=== PATIENT | male | born 1985 | race Caucasian/White ===

== ENCOUNTER 2017-12-06 12:22 | Emergency (ER) | payer OTHER ==
[~2017-12-06] VITALS: Ht 180.3 cm; Wt 64.9 kg
[2017-12-06 12:27] VITALS: BP 169/81; PULSE 93; RESP 18; TEMP 97.1; O2SAT 100
--- NOTE | 2017-12-06 13:44 | PD ---
HPI Chief Complaint: GI Complaint Time Seen by Provider: 13:41 Travel History International Travel<30 days: No Contact w/Intl Traveler<30days: No Traveled to known affect area: No History of Present Illness HPI Patient comes in complaining of an ongoing symptom that has been going for approximately a year and a half. He has not been referred or seen a GI doctor yet. He is having the stool test for H. pylori done by his primary care up in [place]. He is here because his epigastric area pain feels much worse than usual , he is now a 7 out of 10, associated with nausea but without any vomiting or diarrhea. He is epigastric area pain is not radiating, does not appear to improve anymore when eating, but at some point during the past year or so he used to. Patient is here also wondering if he could get urea breath test to check for H. pylori, I advised the patient that as an outpatient testing. No alleviating or aggravating factors Allergy to quinolones and sulfa Past medical history significant for suspected peptic ulcers and cholecystectomy PFSH Past Medical History Gastrointestinal Disorders: Yes Ulcer: Yes (POSSIBLE) Influenza Vaccination: No Past Surgical History Cholecystectomy: Yes Social History Alcohol Use: No Tobacco Use: No Substance Use: No Allergies-Medications (Allergen,Severity, Reaction): Coded Allergies: Quinolones (Verified Allergy, Severe, Dizziness, 12/06/17) Sulfa (Sulfonamide Antibiotics) (Verified Allergy, Severe, Dizziness, ) Reported Meds & Prescriptions Reported Meds & Active Scripts Active Carafate (Sucralfate) 1 Gram Tab 1 Gm PO TID On empty stomach Reglan (Metoclopramide HCl) 10 Mg Tab 10 Mg PO QID 5 Days Review of Systems Except as stated in HPI: all other systems reviewed are Neg Data Data Last Documented VS Vital Signs Date Time Temp Pulse Resp B/P (MAP) Pulse Ox O2 Delivery O2 Flow Rate FiO2 12/06/17 15:48 72 16 114/86 (95) 100 Room Air 12/06/17 12:27 97.1 Orders Orders Complete Blood Count With Diff (12/06/17 13:58) Comprehensive Metabolic Panel (12/06/17 13:58) Lipase (12/06/17 13:58) Abdomen, Flat & Upright (12/06/17 ) Iv Access Insert/Monitor (12/06/17 13:58) Al-Mag Hy-Si 40-40-4 Mg/Ml Liq (Mag-Al P (12/06/17 14:00) Lidocaine 2% Viscous (Xylocaine 2% Visco (12/06/17 14:00) Sucralfate Liq (Carafate Liq) (12/06/17 14:00) Ed Discharge Order (12/06/17 16:39) Labs Laboratory Tests Test 12/06/17 14:05 White Blood Count 9.8 TH/MM3 Red Blood Count 5.41 MIL/MM3 Hemoglobin 17.2 GM/DL Hematocrit 49.8 % Mean Corpuscular Volume 92.1 FL Mean Corpuscular Hemoglobin 31.8 PG Mean Corpuscular Hemoglobin Concent 34.5 % Red Cell Distribution Width 11.7 % Platelet Count 234 TH/MM3 Mean Platelet Volume 9.0 FL Neutrophils (%) (Auto) 73.4 % Lymphocytes (%) (Auto) 14.4 % Monocytes (%) (Auto) 7.7 % Eosinophils (%) (Auto) 3.5 % Basophils (%) (Auto) 1.0 % Neutrophils # (Auto) 7.2 TH/MM3 Lymphocytes # (Auto) 1.4 TH/MM3 Monocytes # (Auto) 0.8 TH/MM3 Eosinophils # (Auto) 0.3 TH/MM3 Basophils # (Auto) 0.1 TH/MM3 CBC Comment DIFF FINAL Differential Comment Blood Urea Nitrogen 21 MG/DL Creatinine 1.20 MG/DL Random Glucose 86 MG/DL Total Protein 8.2 GM/DL Albumin 4.5 GM/DL Calcium Level 8.9 MG/DL Alkaline Phosphatase 70 U/L Aspartate Amino Transf (AST/SGOT) 21 U/L Alanine Aminotransferase (ALT/SGPT) 29 U/L Total Bilirubin 2.2 MG/DL Sodium Level 138 MEQ/L Potassium Level 4.0 MEQ/L Chloride Level 106 MEQ/L Carbon Dioxide Level 23.3 MEQ/L Anion Gap 9 MEQ/L Estimat Glomerular Filtration Rate 69 ML/MIN Lipase 171 U/L [facility] Medical Decision Making Medical Screen Exam Complete: Yes Emergency Medical Condition: Yes Medical Record Reviewed: Yes Differential Diagnosis Perforated ulcer versus small bowel obstruction versus ileus versus pancreatitis versus hepatitis versus electrolyte abnormalities versus dehydration Narrative Course CBC showed no leukocytosis, some hemoconcentration with a hemoglobin of 17, normal platelet count, and no left shift Elect lites are all within normal limits, normal kidney liver and pancreatic functions. The patient's abdominal x-rays show a suspected early ileus is noted without any free air This was discussed with patient, who requested a trial of outpatient therapy. Declined admission for observation at this present time Diagnosis Primary Impression: Ileus Patient Instructions: Full Liquid Diet (DC), General Instructions, Ileus (ED) Scripts Sucralfate (Carafate) 1 Gram Tab 1 GM PO TID for Ulcer Prevention, #90 TAB 0 Refills On empty stomach Prov: Augustine Pizarro MD 12/06/17 Metoclopramide (Reglan) 10 Mg Tab 10 MG PO QID for 5 Days, #30 TAB 0 Refills Prov: Augustine Pizarro MD 12/06/17 Disposition: 01 DISCHARGE HOME Condition: Stable Augustine Pizarro MD Dec 06, 2017 13:44
[2017-12-06] MEDS: SUCRALFATE 1 GM/10 ML CUP PO ONE ×2 (14:00→16:24)
[2017-12-06] MEDS: ALUMINUM/MAGNESIUM/SIMETH 30 ML CUP PO ONE ×2 (14:00→16:24)
[2017-12-06] MEDS: LIDOCAINE VISCOUS 2% SOLN 15 ML UDC PO ONE ×2 (14:00→16:23)
[2017-12-06 14:21] LABS: AUTOMATED NEUTROPHIL # 7.2 TH/MM3 (1.8-7.7); BASOPHIL # 0.1 TH/MM3 (0-0.2); EOSINOPHIL # 0.3 TH/MM3 (0-0.4); EOSINOPHIL % 3.5 % (0.0-4.0); HEMATOCRIT 49.8 % (39.0-51.0); HEMOGLOBIN 17.2 GM/DL (13.0-17.0); LYMPH % 14.4 % (9.0-44.0); LYMPHOCYTE # 1.4 TH/MM3 (1.0-4.8); MEAN CELL VOLUME 92.1 FL (80.0-100.0); MEAN CORPUSCULAR HEMOGLOBIN 31.8 PG (27.0-34.0); MEAN CORPUSCULAR HGB CONC 34.5 % (32.0-36.0); MONO % 7.7 % (0.0-8.0); MONOCYTE # 0.8 TH/MM3 (0-0.9); NEUT % 73.4 % (16.0-70.0); PLATELET COUNT 234 TH/MM3 (150-450); RED BLOOD COUNT 5.41 MIL/MM3 (4.50-5.90); RED CELL DISTRIBUTION WIDTH 11.7 % (11.6-17.2); WHITE BLOOD COUNT 9.8 TH/MM3 (4.0-11.0)
[2017-12-06 14:31] LABS: CHLORIDE 106 MEQ/L (98-107); SODIUM (NA) 138 MEQ/L (136-145)
[2017-12-06 14:34] LABS: CALCIUM 8.9 MG/DL (8.5-10.1)
[2017-12-06 14:35] LABS: ALBUMIN 4.5 GM/DL (3.4-5.0); BICARBONATE 23.3 MEQ/L (21.0-32.0); BLOOD UREA NITROGEN 21 MG/DL (7-18); GLUCOSE,RANDOM 86 MG/DL (74-106)
[2017-12-06 14:37] LABS: ALT (GPT) 29 U/L (12-78); AST (GOT) 21 U/L (15-37)
[2017-12-06 14:38] LABS: GLOMERULAR FILTRATION RATE 69 ML/MIN (>89)
[2017-12-06 14:39] LABS: TOTAL BILIRUBIN ADULT 2.2 MG/DL (0.2-1.0); TOTAL PROTEIN 8.2 GM/DL (6.4-8.2)
[2017-12-06 14:40] LABS: ALKALINE PHOSPHATASE 70 U/L (45-117)
--- NOTE | 2017-12-06 15:24 | RADRPT ---
EXAM DATE: 12/06/2017 3:19 PM EDT AGE/SEX: 32 years / Male INDICATIONS: Severe abdomen pain CLINICAL DATA: This is the patient's initial encounter. Patient reports that signs and symptoms have been present for 3 days and indicates a pain score of 9/10. MEDICAL/SURGICAL HISTORY: None. None. COMPARISON: No prior [facility] exams available for comparison. FINDINGS: Mild to moderate small bowel distention present, especially jejunal loops in the left upper quadrant. No free air demonstrated. No significant colonic or gastric distention demonstrated. Patient has had previous cholecystectomy. CONCLUSION: Suspected early or partial small bowel obstruction. No free air. Electronically signed by: Abraham Michel MD 12/06/2017 3:22 PM EDT
[2017-12-06 15:48] VITALS: BP 114/86; PULSE 72; RESP 16; O2SAT 100
[2017-12-06] MEDS ORDERED: CARA1TAB6 PO (16:41)
[2017-12-06] MEDS ORDERED: REGL10TA5 PO (16:41)
[2017-12-06 16:54] VITALS: BP 93/74; PULSE 72; RESP 18; O2SAT 100
== END 2017-12-06 17:01 | disposition home or self-care (01) ==
LOC: PHED 12:22
DX: R10.13 Epigastric pain (principal); Z88.2 Allergy status to sulfonamides; Z88.8 Allergy status to other drugs, medicaments and biological substances
CPT/HCPCS: 74019; 80053; 83690; 85025; 99284